=== PATIENT | male | born 1995 | race Caucasian/White ===

== ENCOUNTER 2017-01-30 14:14 | Inpatient (IN) | payer SELFPAY ==
[~2017-01-30] VITALS: Ht 180.3 cm; Wt 78.4 kg
--- NOTE | ~2017-01-30 | DS ---
PATIENT'S NAME: ELOY SANCHEZ [facility] AGE: 21 Y [address] ROOM: [address] [address] LOCATION: GPCU ADMIT DATE: 01/30/2017 Discharge Summary DISCHARGE DATE: 02/02/2017 FAMILY PHYSICIAN: PHYSICIAN, NO ATTENDING PHYSICIAN: Stephane Mclain PRIMARY DIAGNOSES: 1. Diabetic ketoacidosis without coma. 2. Acute encephalopathy. 3. Depression. 4. Acute kidney injury. PRINCIPAL PROCEDURES: None was indicated. LABORATORY DATA: Labs during the hospital stay, his ABG on admission was 7.03. The pH repeat was 6.92. VBG afterwards last that was done was 7.34. WBC was not repeated after admit. On admission, his potassium was 3.9, lowest level obtained was 2.9, prior to discharge was 3.3, but was repleted p.o. and the patient was 2 months of potassium supplements. Bicarb on admission was less than 5, prior to discharge it was 24. Creatinine was 1.3 on admission, prior to discharge was 0.3. Liver function test was stable throughout the hospital stay. Phosphorus on admission was 1.7, lowest level obtained was 0.5, prior to discharge was 3.8. Magnesium was stable throughout the hospital stay at 2.2. Hemoglobin A1c was greater than 16.0. UA: Leukocytes negative, nitrite negative, WBC negative. Procalcitonin 0.25. RADIOLOGY: Chest x-ray, no acute process. HOSPITAL COURSE: For history of present illness, please take a look at the H and P, which was done by Dr. Mclain. The patient was admitted to ICU given the DKA without coma, was managed as per the insulin as per the DKA order set. By the next day of his hospital stay, his anion gap had closed and he was weaned off insulin and was started on his diabetic diet. Thereafter, his sugars remained stable. However, he did develop some multiple electrolyte imbalances, which required multiple repletion of his phosphorus, magnesium, and his potassium. The big issue with his safe discharge was how the patient was going to procure his insulin, as he has currently been laid off his work and currently has no insurance or any means of getting insurance. However, the diabetic ed nurses helped to get him a voucher for NPH insulin, which was the cheapest available for him at the current time, though at home the patient takes Tresiba and premeal insulin lispro. He was given voucher. On the day of discharge, his vital signs were stable. His electrolytes had corrected and he was discharged home with strong instructions to go and get his insulin with the aid of the voucher and he was also set up to follow up with the [facility] specialist group, Dr. Ram, the office possibly may have free PATIENT'S NAME: ELOY SANCHEZ [facility] AGE: 21 Y [address] ROOM: [address] [place] [id number] LOCATION: GPCU ADMIT DATE: 01/30/2017 Discharge Summary DISCHARGE DATE: 02/02/2017 FAMILY PHYSICIAN: PHYSICIAN, HAILEY ATTENDING PHYSICIAN: Stephane Mclain sample of the Tresiba. So hopefully if they do, he may be restarted on Tresiba upon visit. This was explained to the patient. MEDICATION ON DISCHARGE: 1. Insulin lispro subcu 3 times daily. 2. NPH 50 units subcu twice daily. 3. Potassium tablet 40 mEq p.o. one time. DISCHARGE INSTRUCTIONS: The patient is to have his blood work, cms, mag, and phos repeated on visit. MD ANAILSA MCKEON/rocío /[id number] d: 02/03/170 t: 02/28/17 1113, DISCHARGE SUMMARY
--- NOTE | ~2017-01-30 | HP ---
PATIENT'S NAME: ELOY SANCHEZ [facility] AGE: 21 Y [address] ROOM: [place] [address] LOCATION: [facility] ADMIT DATE: 01/30/2017 History & Physical DISCHARGE DATE: FAMILY PHYSICIAN: PHYSICIAN, NO ATTENDING PHYSICIAN: GRUPO MILLAN DATE OF SERVICE: CHIEF COMPLAINT: DKA. HISTORY OF PRESENT ILLNESS: This is a 21-year-old male who has a type 1 diabetes, usually using insulin at home. However, due to insurance problem, he has run out of insulin in about 2 weeks, and he has not used any insulin for the last 2 weeks. For the last few days, he has been complaining of nausea, but he did not vomit. He also complained of some abdominal pain, vague, diffusely also for the last few days. He also has been experiencing polyuria, and due to nausea, he has been having poor oral intake as well recently. Last night, he started developing this tachypnea. Because of this problem, the patient came in here for evaluation. Last time, he had a DKA was earlier this year, treated in another hospital. He denies any chest pain, cough, diarrhea, dysuria, sick contact, fever, chills, or any other complaints. REVIEW OF SYSTEMS: As mentioned in history of present illness. All other systems were reviewed and were negative except for those mentioned in history of present illness. PAST MEDICAL HISTORY: 1. Type 1 diabetes. 2. Depression. ALLERGIES: NO KNOWN DRUG ALLERGIES. HOME MEDICATIONS: Currently has been reconciled. SOCIAL HISTORY: Denies any smoking, alcohol, or illegal drug. PAST SURGICAL HISTORY: PATIENT'S NAME: ELOY SANCHEZ [facility] AGE: 21 Y [address] ROOM: [place] [address] LOCATION: [facility] ADMIT DATE: 01/30/2017 History & Physical DISCHARGE DATE: FAMILY PHYSICIAN: PHYSICIAN, NO ATTENDING PHYSICIAN: GRUPO MILLAN None. FAMILY HISTORY: He is adopted. PHYSICAL EXAMINATION: VITAL SIGNS: At the time of my dictation, temperature 97.4, heart rate 119, respirations 35, blood pressure 180/89, saturation 100% on BiPAP. GENERAL APPEARANCE: The patient is tachypneic and in respiratory distress. Alert and oriented x3. Follows commands. HEENT: Pupils are equally round and reactive to light. Extraocular muscles intact. Anicteric sclerae. Nasal turbinates are normal bilaterally. Dry oral mucosa. NECK: No JVD. CARDIOVASCULAR: Tachycardic. Normal S1, S2. No murmur, no rubs, no gallops. RESPIRATORY: Clear. No rales, no rhonchi, no wheezing, no crackles. ABDOMEN: Soft, mildly tender diffusely, but no abdominal rigidity. Bowel sounds are present, no mass. EXTREMITIES: No edema in upper or lower extremities. NEUROLOGIC: Grossly nonfocal. SKIN: No ulcer, no rash, no cyanosis. LABORATORY DATA: PH 7.03, pCO2 of 6, pO2 of 128, bicarbonate in less than 3, and saturation not performed on room air. Lactic acid 1.3. White blood cell 9.1, hemoglobin 19.6, hematocrit 54, MCV 89, platelet 257. Glucose 258, BUN 6, creatinine 1.2. Sodium 139, potassium 3.9, chloride 112, CO2 of less than 5, calcium 7.9. Total protein 8.6, albumin 4.6, AST 13, ALT 20, alkaline phosphatase 137, total bilirubin 0.6, phosphorus 1.7. Anion gap too high that cannot be calculated. GFR more than 60. A1c pending. INR 1.0, PTT 34. Urinalysis negative for UTI. Urine drug screen negative. Tylenol level and aspirin level less than the toxic level. Acetone positive. CRP less than 0.2. Free T4 of 1.0, TSH 1.5. Procalcitonin 0.25. D-dimer 0.34. IMAGING STUDIES: Chest x-ray on admission showed no acute process. ASSESSMENT AND PLAN: 1. Regarding his diabetic ketoacidosis: Continue current IV insulin drip due to the pH that we repeated was less than 7, it was 6.92. For this reason, he is in severe metabolic acidosis, anion gap from DKA causing him to have tachypnea from respiratory alkalosis. I will treat him with a sodium bicarb per the DKA protocol, run over 2 hours and then repeat every 2 hours if needed to reach the pH more than 6.9. Continue IV fluids. We will switch to D5 half normal saline when the glucose is less PATIENT'S NAME: ELOY SANCHEZ [facility] AGE: 21 Y [address] ROOM: [address] [address] LOCATION: [facility] ADMIT DATE: 01/30/2017 History & Physical DISCHARGE DATE: FAMILY PHYSICIAN: PHYSICIAN, NO ATTENDING PHYSICIAN: GRUPO MILLAN than 250. Keep the potassium between 4-5. I will get an EKG to confirm sinus tachycardia. UA is clean. I will not do blood culture, because the patient is not septic. The cause is from his medication noncompliance. The patient does not look septic. Continue BiPAP for his tachypnea. Further plan will depend on clinical course. Diabetic diet. 2. Regarding his depression: Home medication currently has been reconciled. 3. Regarding his nausea: IV Zofran p.r.n. 4. Regarding his abdominal pain: This is partly from diabetic ketoacidosis. Abdomen is benign on examination. There is no abdominal rigidity. There is no loose stool. He is a full code. Time spent in care on the day of admission 45 minutes where 25 minutes was spent on counseling, including going over the plan of care with the patient and family members and also addressing all the questions and concerns to their satisfaction. The remainder of time was spent on chart review and on physical examination and also on the interview. Further plan will depend on clinical course. GRUPO MILLAN MD CC/kelseyl /[id number] D: [id number] T: [id number] HISTORY & PHYSICAL
--- NOTE | ~2017-01-30 | ER ---
PATIENT'S NAME: ELOY WOODRUFF [facility] AGE: 21 Y [address] ROOM: [place] [address] LOCATION: [facility] ADMIT DATE: 01/30/2017 ER/Outpatient Report DISCHARGE DATE: FAMILY PHYSICIAN: PHYSICIAN, NO ATTENDING PHYSICIAN: GRUPO MILLAN CHIEF COMPLAINT: Shortness of breath, body aches, and abdominal pain. HISTORY OF PRESENT ILLNESS: Mr. Woodruff is a type 1 diabetic and he has not taken his insulin for at least 2 weeks. He states this is because he cannot afford to obtain more insulin. He has a history of not taking his insulin on purpose, but that was a choice. He feels at this time, he cannot afford it. His symptoms have been progressive including deep breathing and dryness for the last few days, but he has continued to make urine. When he checks his sugars at home, they read "high." He has no other specific complaints. Denies any fevers, abdominal tenderness, nausea, or vomiting. He has had no cough or shortness of breath, but does state that he is starting to get a little tired from the heavy breathing that he has been doing. No other issues at this time. PAST MEDICAL HISTORY: Documented on the record and have been reviewed by me. SOCIAL HISTORY: Documented on the record and have been reviewed by me. MEDICATIONS: Documented on the record and have been reviewed by me. ALLERGIES: DOCUMENTED ON THE RECORD AND HAVE BEEN REVIEWED BY ME. REVIEW OF SYSTEMS: All systems were reviewed and negative except as noted in the HPI. PHYSICAL EXAMINATION: VITAL SIGNS: Blood pressure 157/89, pulse 120, respiratory rate is 30, temperature 97.1, SpO2 is 95% on room air. Pain is [id number]. GENERAL: Age-appropriate male, in moderate distress and mild discomfort, otherwise, who does appear ill and tired. NEUROLOGIC: The patient is awake and alert. He ambulates without difficulty. No focal deficits. No asymmetry. GCS is 15. HEENT: Normocephalic, atraumatic. Eyes are PERRL. Sclerae are injected. No conjunctivitis. The oropharynx is dry. Lips are chapped and cracked. PATIENT'S NAME: ELOY WOODRUFF [facility] AGE: 21 Y [address] ROOM: [place] [id number] LOCATION: [facility] ADMIT DATE: 01/30/2017 ER/Outpatient Report DISCHARGE DATE: FAMILY PHYSICIAN: PHYSICIAN, NO ATTENDING PHYSICIAN: GRUPO MILLAN NECK: Supple. Trachea is midline. CHEST: Heart is tachycardic with no obvious murmurs. LUNGS: Clear to auscultation bilaterally with no rhonchi, wheezes, or rales. ABDOMEN: Diffusely tender. No rebound, guarding, or masses. BACK: Normal to inspection and palpation. EXTREMITIES: Warm and well perfused. No deformities or edema. SKIN: Clean, dry, and intact with decreased turgor. LABORATORY DATA AND X-RAYS: Chest x-ray is unremarkable per my review. No evidence of pneumonia. CBC: White count is 9.1, hemoglobin is 19.6, platelets 257. INR is 1. ABG: PH is 7.03, pCO2 is 6, pO2 is 128 on room air, bicarb is less than 3. Serum lactate is 1.3. CMS: Sodium is 139, potassium 3.9, chloride is 109, CO2 is less than 5. Anion gap is unable to be calculated secondary to not clear results for CO2, but is at least 17. Serum glucose 255, BUN 6, creatinine is 1.3. GFR is greater than 60. No LFT abnormalities. Tylenol was negative. CRP is below detectable threshold. Salicylate level is 3.9. Free T4 is 1. TSH is 1.55. D-dimer is 0.34. Procalcitonin is 0.25. Serum ketones are positive at 1-64. IMPRESSION: 1. Diabetic ketoacidosis. 2. Moderate hypovolemia. 3. Detectable salicylates. 4. Anion gap metabolic acidosis secondary to diabetic ketoacidosis. ED COURSE: The patient was seen and evaluated. DKA was determined initially. Differential diagnosis includes accidental versus purposeful ingestion. Unclear where the salicylate level is coming from. The ketoacidosis explains his acidosis much better. He will require hospitalization in the intensive care unit for further evaluation and treatment based on his acid-base disorder at this time. He was given an L of NS bolus and the insulin protocol was initiated. He was given appropriate dose bolus insulin and drip with D5 LR to be administered concurrently. He remained in the emergency department and his blood sugars remained stable. He was taken to the ICU at the time of lab draw for his second set of electrolytes and thus no further adjustments were made to his fluid administration. Case was discussed with Dr. Griffin, hospitalist who will admit him for further evaluation and treatment. CRITICAL CARE: A 45 minutes critical care time was spent on this patient, patient evaluation, re-evaluation, laboratory evaluation including ordering and interpreting, CBC, CMS, blood gas in addition to other labs. I did order interpreted chest x- PATIENT'S NAME: ELOY WOODRUFF [facility] AGE: 21 Y [address] ROOM: [place] [address] LOCATION: [facility] ADMIT DATE: 01/30/2017 ER/Outpatient Report DISCHARGE DATE: FAMILY PHYSICIAN: PHYSICIAN, HAILEY ATTENDING PHYSICIAN: GRUPO MILLAN. I directed fluid management and insulin drip management in the setting of presumed DKA. He will need to be monitored closely. He is at significant risk for acute decompensation. All questions were answered and the patient was taken to the ICU for further evaluation and treatment. MD VINAY MCDONOUGH/modyandy /[id number] d: 01/31/17 0103 t: 02/20/17 1203, OUTPATIENT REPORT
[2017-01-30 14:30] LABS: BASOPHIL # 0.1 K/uL (0.0-0.2); BASOPHIL % 0.8 %; EOSINOPHIL # 0.1 K/uL (0.0-0.5); EOSINOPHIL % 0.9 %; HEMOGLOBIN 19.6 g/dL (12.0-17.0); IMMATURE GRANULOCYTE # 0.1 K/uL (0.0-0.3); IMMATURE GRANULOCYTE % 1.2 %; LYMPHOCYTE % 33.4 %; MCH 32.3 pg (27.0-34.0); MCHC 36.3 gm/dL (32.0-36.5); MONOCYTE # 0.5 K/uL (0.0-1.0); MONOCYTE % 5.1 %; MPV 10.6 fl (9.4-12.4); NEUTROPHIL # (ANC) 5.3 K/uL (1.4-9.0); NEUTROPHIL % 58.6 %; NRBC % 0 /100WBC (0-0.00); PLATELET COUNT 257 K/uL (150-450); RBC 6.07 M/uL (4.00-6.00); WBC 9.1 K/uL (4.0-11.0)
[2017-01-30 14:38] LABS: PO2 128 mmHg (80-90)
[2017-01-30 14:39] LABS: PROTIME 10.5 SECONDS (9.8-11.4); PTT 34 SECONDS (25-32)
[2017-01-30 14:55] LABS: BICARBONATE < 3.0 mmol/L (18.0-23.0); PCO2 6 mmHg (35-45)
[2017-01-30 14:56] LABS: LACTATE 1.3 mEq/L (0.50-1.60)
[2017-01-30 14:59] LABS: ALBUMIN 4.6 gm/dL (3.5-5.0); ALK PHOS 137 IU/L (33-138); ALT 20 IU/L (12-78); AST 13 IU/L (10-40); BLOOD UREA NITROGEN 6 mg/dL (6-24); CALCIUM 8.5 mg/dL (8.5-10.5); CHLORIDE 109 mMol/L (96-110); CO2 < 5 mMol/L (22-32); CREATININE 1.3 mg/dL (0.6-1.3); ESTIMATED GFR (MDRD EQUATION) > 60; POTASSIUM 3.9 mMol/L (3.7-5.1); SODIUM 136 mMol/L (135-145); TOTAL BILIRUBIN 0.6 mg/dL (0.0-1.5); TOTAL PROTEIN 8.6 g/dL (6.0-8.4)
[2017-01-30 16:21] LABS: BILIRUBIN URINE NEGATIVE (NEGATIVE); BLOOD URINE 25 /UL (NEGATIVE); COLOR URINE YELLOW (YELLOW); GLUCOSE URINE 1000 mg/dL (NEGATIVE); KETONE URINE 150 mg/dL (NEGATIVE); LEUKOCYTES URINE NEGATIVE /UL (NEGATIVE); NITRITE URINE NEGATIVE (NEGATIVE); PROTEIN URINE 100 mg/dL (NEGATIVE); SPEC GRAVITY URINE 1.025 (1.003-1.035); TURBIDITY URINE CLEAR (CLEAR); UROBILINOGEN URINE NORMAL (NORMAL)
[2017-01-30 16:37] LABS: BACTERIA URINE FEW (NEGATIVE); EPITHELIAL URINE 0-2 #/HPF (NEGATIVE); HYALINE CAST URINE 0-2 #/LPF (NEGATIVE); WBC URINE NEGATIVE #/HPF (NEGATIVE)
[2017-01-30 16:46] LABS: BARBITURATE NEGATIVE (NEGATIVE); COCAINE NEGATIVE (NEGATIVE); OPIATES NEGATIVE (NEGATIVE)
[2017-01-30 16:59] LABS: AMPHETAMINE NEGATIVE (NEGATIVE)
[2017-01-30 17:03] LABS: BICARBONATE 4.3 mmol/L (18.0-23.0); PCO2 21 mmHg (35-45); PO2 34 mmHg (80-90)
[2017-01-30 17:11] LABS: ALBUMIN 4.1 gm/dL (3.5-5.0); BLOOD UREA NITROGEN 6 mg/dL (6-24); CALCIUM 7.9 mg/dL (8.5-10.5); CHLORIDE 112 mMol/L (96-110); CO2 < 5 mMol/L (22-32); CREATININE 1.2 mg/dL (0.6-1.3); ESTIMATED GFR (MDRD EQUATION) > 60; POTASSIUM 3.9 mMol/L (3.7-5.1); SODIUM 139 mMol/L (135-145)
[2017-01-30 17:12] LABS: PHOSPHORUS 1.7 mg/dL (2.5-4.9)
[2017-01-30] MEDS ORDERED: TRESIBA FL100 UNIT/1 SUB-Q (17:55)
[2017-01-30] MEDS ORDERED: HUMALOG100 UNIT/3 SUB-Q (17:56)
--- NOTE | 2017-01-30 18:42 | NUR ---
Admit to ICU from ER for DKA. Patient oriented x3, tachycardic HR 110s, SBP 140-170s. Present on room air, applied mask to help with tachypnea. Bipap applied after order received. D5LR & Insulin gtt. Family at bedside
[2017-01-30 20:58] LABS: PCO2 23 mmHg (35-45)
[2017-01-30 21:07] LABS: BICARBONATE 7.1 mmol/L (18.0-23.0); PO2 35 mmHg (80-90)
[2017-01-30 21:20] LABS: ANION GAP 25.7 (10.0-19.0); BLOOD UREA NITROGEN 6 mg/dL (6-24); CHLORIDE 113 mMol/L (96-110); CREATININE 0.9 mg/dL (0.6-1.3); ESTIMATED GFR (MDRD EQUATION) > 60; POTASSIUM 3.7 mMol/L (3.7-5.1); SODIUM 142 mMol/L (135-145)
[2017-01-30 21:26] LABS: CO2 7 mMol/L (22-32)
[2017-01-30 23:00] LABS: BICARBONATE 8.1 mmol/L (18.0-23.0)
[2017-01-30 23:01] LABS: PCO2 18 mmHg (35-45)
[2017-01-30 23:02] LABS: PO2 112 mmHg (80-90)
[2017-01-30 23:23] LABS: BLOOD UREA NITROGEN 5 mg/dL (6-24); CALCIUM 7.8 mg/dL (8.5-10.5); CREATININE 0.8 mg/dL (0.6-1.3); ESTIMATED GFR (MDRD EQUATION) > 60; MAGNESIUM 1.8 mg/dL (1.8-2.6); POTASSIUM 3.1 mMol/L (3.7-5.1); SODIUM 145 mMol/L (135-145)
[2017-01-30 23:24] LABS: ANION GAP 23.1 (10.0-19.0); CHLORIDE 117 mMol/L (96-110); CO2 8 mMol/L (22-32)
[2017-01-31 03:59] LABS: PCO2 26 mmHg (35-45); PO2 158 mmHg (80-90)
[2017-01-31 04:17] LABS: BLOOD UREA NITROGEN 5 mg/dL (6-24); CALCIUM 7.8 mg/dL (8.5-10.5); CREATININE 0.8 mg/dL (0.6-1.3); ESTIMATED GFR (MDRD EQUATION) > 60; MAGNESIUM 1.7 mg/dL (1.8-2.6); SODIUM 145 mMol/L (135-145)
[2017-01-31 04:18] LABS: ANION GAP 15.5 (10.0-19.0); CHLORIDE 117 mMol/L (96-110); CO2 15 mMol/L (22-32); POTASSIUM 2.5 mMol/L (3.7-5.1)
--- NOTE | 2017-01-31 05:10 | NUR ---
Significant Event: Patient is A/O x3. ST with HRs 100s-120s. SBP 130s-140s. Max temp 99.1. Patient started shift tachypnea, BiPAP at 30%, taken off BiPAP to RA at 0200, O2 SAT 96-100%, lung sounds clear throughout. Active bowel sounds, diabetic diet, no BM. 1610ml out per urinal. Accu checks Q1H, insulin gtt. Replaced 30mmol k phos, 40mEq KCL IV, 40mEq KCL PO. Follow up: continue to monitor
[2017-01-31 08:16] LABS: BLOOD UREA NITROGEN 4 mg/dL (6-24); CALCIUM 7.6 mg/dL (8.5-10.5); CHLORIDE 113 mMol/L (96-110); CREATININE 0.8 mg/dL (0.6-1.3); ESTIMATED GFR (MDRD EQUATION) > 60; MAGNESIUM 1.7 mg/dL (1.8-2.6); SODIUM 141 mMol/L (135-145)
[2017-01-31 08:18] LABS: ANION GAP 20.7 (10.0-19.0); CO2 11 mMol/L (22-32); POTASSIUM 3.7 mMol/L (3.7-5.1)
--- NOTE | 2017-01-31 10:45 | NUR ---
Diabetes consult; Patient admitted with DKA and an A1C of >16%. The patient reports having been diagnosed with Type I diabetes two years ago. He had been seeing Dr. Siegel in [facility], however he has lost his job and since moved to [place]. He reports after losing his job and health insurance, he has been unable to afford his Tresiba and Humalog. He reports being without insulin for the last two weeks. He reports his girlfriend is 7 months and he cannot afford medications. The patient reports having plenty of testing supplies at home and uses insulin pens. Talked with Care Management and Dr. Schmitz. Will be able to provide the patient with a insulin voucher for five free Humalog pens. Recommend trying to obtain a long acting insulin sample for the patient prior to discharge and scheduling a follow up with a provider here in [place]. Care management will begin having the patient fill out [facility] assistance papers. If long acting sample cannot be obtained, the patient can purchase a vial of NPH for $[address] [facility]. Will continue to follow and assist.
--- NOTE | 2017-01-31 11:19 | NUR ---
Significant Event: A/O x3, lethargic, transfers independently in room. ST, HRs 90s, SBPs 130-140s, afebrile, no edema. O2 remains >90% on RA, lung sounds clear. Active bowel sounds, No BM, voids per urinal. Diabetic diet, ate 100% of breakfast. Bilateral AC 20g, D5LR running at 75/hr, started 2gm Mag at 1000 for serum Mag of 2.0. BS 161 and 206, Levemir 10 units started, Regular insulin 5 units after eating given, Insulin drip off. Gas Or Water Meter Installer spoke with patient about using coupons for fast acting and samples for long acting insulin. Diabetic questionaire completed. Follow up: Noon BMP and Mag. Transfer to PCU.
--- NOTE | 2017-01-31 11:33 | NUR ---
D: I HAVE REVIEWED AND AGREE WITH CHARTING COMPLETED BY TILA STOUT.
[2017-01-31 12:25] LABS: BLOOD UREA NITROGEN 5 mg/dL (6-24); CHLORIDE 112 mMol/L (96-110); CREATININE 0.9 mg/dL (0.6-1.3); ESTIMATED GFR (MDRD EQUATION) > 60; POTASSIUM 3.1 mMol/L (3.7-5.1); SODIUM 140 mMol/L (135-145)
[2017-01-31 12:28] LABS: ANION GAP 17.1 (10.0-19.0); CALCIUM 7.4 mg/dL (8.5-10.5); CO2 14 mMol/L (22-32)
--- NOTE | 2017-01-31 15:24 | NUR ---
I did talk with hematology nurse educator Aster and she updated me on the pt. She has a voucher for him for the pen and either will do the nph for only $25 or see what the md wants to do about getting him back on long acting. I did go talk with pt and introduced self. He does not have insurance but did get a new job and should in 3 months. HE lives in [place] with his girlfriend and they are expecting a baby. He has no contact with his parents in [place] and does not plan to but has a good relationship with his girlfriends family. He states he he has plently to check his blood sugars. I asked about a pcp and he said something about [facility] but I did mention I notified Almita with the hospitalist and maybe about getting him a pcp with [facility] and she would be up. I did sign him up for [facility] just in case and gave him information about the free clinic as well. AT this time will follow but he may need a bottle of long acting prior to leaving the hospital. Will continue to follow.
--- NOTE | 2017-01-31 15:50 | NUR ---
Significant Event: Patient came to PCU unit @ 1425. A/O X3. VSS. BP-128/64, HR-101, R-16, O2-96% RA, T-98.7. Ambulates independently. ACHS accuchecks. Gave 80 MEQ of potassium-40 mg PO and 40 mg IV. Re-check potassium @ 1800. LAC PIV with D5LR infusing at 75 ml/h. Follow up: Continue per patient plan of care. Possible discharge tomorrow
[2017-02-01 04:06] LABS: ANION GAP 14.1 (10.0-19.0); BLOOD UREA NITROGEN 9 mg/dL (6-24); CALCIUM 7.7 mg/dL (8.5-10.5); CHLORIDE 109 mMol/L (96-110); CO2 19 mMol/L (22-32); CREATININE 0.8 mg/dL (0.6-1.3); ESTIMATED GFR (MDRD EQUATION) > 60; POTASSIUM 3.1 mMol/L (3.7-5.1); SODIUM 139 mMol/L (135-145)
--- NOTE | 2017-02-01 05:20 | NUR ---
Significant Event: Patient alert and oriented x3. HR 70s-110s. SBP 120s-140s. All other vital signs stable. On RA. Accucheck at HS 161. 2 units given per sliding scale. Scheduled 15 units levamir given. No complaints of pain/nausea. Up in room independently. Left AC PIV saline locked. Patient slept on and off. Significant other at bedside. Patient calm and cooperative with all cares. Follow up: Home today?
--- NOTE | 2017-02-01 09:57 | NUR ---
Diabetes Consult; Patient reports feeling tired this morning. Blood sugar this a.m. controlled at 151. The patient's potassium is down to 3.1 from 3.6. He is being supplemented with potassium at this time. Anticipate the patient may go home tomorrow. Patient will need either a long acting insulin sample or a script for NPH as he cannot afford his insulins. Care managment assisted the patient in completing [facility] forms and he was encouaraged to establish care with a PCP in [place]. Will continue to follow.
[2017-02-01 16:18] LABS: PHOSPHORUS 2.3 mg/dL (2.5-4.9); POTASSIUM 3.2 mMol/L (3.7-5.1)
--- NOTE | 2017-02-01 19:07 | NUR ---
PATIENT UP TO BR AND IN KOO W/ STAND BY ASSIST, TOLERATED WELL. PO POTASSIUM AND KPHOS IV INFUSION GIVEN X2 THIS SHIFT. LABS ORDERED IN AM.
--- NOTE | 2017-02-02 05:27 | NUR ---
Significant Event: DENIES PAIN ALL NIGHT. UP AD MAGDALENO IN ROOM. REMAINS ON ROOM AIR. DENIES SOB. BLOOD SUGARS LESS THAN 200 ALL NIGHT. GIRLFRIEND IN ROOM ALL NIGHT. Follow up:
[2017-02-02 05:46] LABS: ANION GAP 11.3 (10.0-19.0); BLOOD UREA NITROGEN 11 mg/dL (6-24); CALCIUM 8.1 mg/dL (8.5-10.5); CHLORIDE 111 mMol/L (96-110); CO2 24 mMol/L (22-32); CREATININE 0.6 mg/dL (0.6-1.3); ESTIMATED GFR (MDRD EQUATION) > 60; MAGNESIUM 2.2 mg/dL (1.8-2.6); PHOSPHORUS 3.8 mg/dL (2.5-4.9); POTASSIUM 3.3 mMol/L (3.7-5.1); SODIUM 143 mMol/L (135-145)
--- NOTE | 2017-02-02 09:45 | NUR ---
Diabetes Consult: Patient is planning to be discharged to home today. He has financial constraints, having no insurance and a girlfriend that is [address] months . [address] with Dr. Schmitz regarding insulin dosing for home and prescribing the most affordable option. The patient will be given an insulin voucher for 5 free Humalog insulin pens to use for insulin to carb and correction as he had been doing at home. For now, the patient will be given a script for Novolin N (NPH), specifically the Reli-on brand that can be purchased OTC at [facility] for $25. He was instructed to take 15 units twice daily in place of the Levemir he had been receiving in the hospital. He was given financial papers to fill out for the [employer] to see if he qualifies for financial assistance for Novolog and Levemir or Tresiba. He was instructed to take these papers to his follow up appointment and have them signed by the provider and faxed. The patient was scheduled for an appointment with Dr. Ram on February 09, and given new patient information forms as well as financial assistance forms to complete prior to the appointment. Provider may opt to increase the patient's NPH dose or may be able to provide the patient with a sample of a basal insulin such as Tresiba or Levemir, until financial papers have been processed. The patient reports having testing supplies at home. He was given a sample of insulin syringes and pen needles to help defray some of the cost. Patient denies any questions or concerns.
[2017-02-02] MEDS ORDERED: NOVOLOG FL100 UNIT/1 SUB-Q (11:14)
[2017-02-02] MEDS ORDERED: NOVOLIN N100 UNIT/1 SUB-Q (11:22)
[2017-02-02] MEDS ORDERED: K-TAB (4040 MEQ/4 T PO (11:25)
--- NOTE | 2017-02-02 13:04 | NUR ---
I did fax over med list to [facility]. Pt went home on the NPH. Cynthia form given for when he does get restarted on his long acting. F/U appointment with DR Cardozo.
--- NOTE | 2017-02-02 13:58 | NUR ---
PATIENT DISMISSED TO HOME W/ GIRLFRIEND PER PRIVATE AUTO. PATIENT TRANSFERED TO CAR WITH NURSE AID. REVIEWED DISMISSAL INSTRUCTIONS WITH PATIENT, INCLUDING NEW MEDICATIONS, AND MODERATE SLIDING SCALE INSULIN COVERAGE, PATIENT VERBALIZED UNDERSTANDING OF INSTRUCTIONS. GAVE PATIENT INFO SHEETS ON NEW MEDICATIONS, COPY OF MODERATE SLIDING SCALE, DKA EDUCATION INFO, PNEUMONIA VACCINE INFO SHEET. PATIENT INSTRUCTED THAT HE NEEDS TO CONTINUE TAKING THE PRESCRIBED INSULIN, AND IF HE IS UNABLE TO OBTAIN INSULIN, TO NOTIFY HIS PHYSICIAN OR THE MARKETING PROJECT SPECIALIST. PATIENT VERBALIZED UNDERSTANDING AND STATED HE HAD NO FURTHER QUESTIONS.
== END 2017-02-02 12:03 | disposition disaster alternative care site (69) | DRG 637 ==
LOC: GMED 14:14 → GPCU 16:09 → GICU 16:09 → GPCU 01-31 14:27
PROVIDERS: Emergency Medicine; Family Medicine; Hospitalist; ADMIT Internal Medicine
DX: E13.10 Other specified diabetes mellitus with ketoacidosis without coma (principal); G93.40 Encephalopathy, unspecified; F32.9 Major depressive disorder, single episode, unspecified; Z91.19 Patient's noncompliance with other medical treatment and regimen; Z79.4 Long term (current) use of insulin
CPT/HCPCS: G0009; G0480; J3475; J3480; J7030; J7040; J7050; J7121